=== PATIENT | female | born 1980 | race Caucasian/White ===

== ENCOUNTER 2016-11-21 23:37 | Emergency (ER) | payer OTHER ==
[~2016-11-21] VITALS: Ht 152.4 cm; Wt 66.2 kg
[~2016-11-21 23:37] MED LIST: ANAPROX DS550 MG PO; ANUSOL-HC25 MG RC; BACTRIM DS 8001 TA1 PO; CATAFLAM50 MG PO; CIPRO250 MG PO; CIPROFLOXACIN500 MG PO; CLARITIN10 MG PO; COMBIVENT1 ARO IH; FLAGYL500 MG; FLEXERIL5 MG PO; IBU800 MG PO; LIDEX0.05% T; MACROBID100 M1 PO; MOTRIN800 MG PO; MULTI VITAMINS1 TAB PO; Miralax Powder255 GM PO; NKHM; PREDNICOT20 MG PO; PRENATAL1 TA3 PO; PRENATAL1 TA7 PO; PYRIDIUM100 MG PO; ROBITUSSIN AC 110 ML PO; SEPTRA DS 800 M1 TAB PO; TORADOL10 MG PO; ULTRAM50 MG PO; VIBRAMYCIN100 MG PO; VICODIN 5/500 505 MG PO; ZITHROMAX Z PA250 MG PO; ZOFRAN ODT4 MG SL
[2016-11-21 23:43] VITALS: BP 122/83
[2016-11-22] MEDS ORDERED: CLINDAMYCIN HC300 MG PO (00:11)
[2016-11-22] MEDS ORDERED: ULTRAM50 MG PO (00:11)
[2016-11-22] MEDS ORDERED: BACTRIM DS 8001 TA1 PO (00:11)
== END 2016-11-22 00:24 | disposition home or self-care (01) ==
LOC: ED 23:37
DX: S01.331A Puncture wound without foreign body of right ear, initial encounter (principal); H60.11 Cellulitis of right external ear; Z88.0 Allergy status to penicillin; Z88.1 Allergy status to other antibiotic agents; X58.XXXA Exposure to other specified factors, initial encounter; Y93.9 Activity, unspecified; Y92.9 Unspecified place or not applicable; Y99.9 Unspecified external cause status

== ENCOUNTER 2019-03-01 14:49 | Emergency (ER) | payer OTHER ==
[~2019-03-01] VITALS: Ht 152.4 cm; Wt 47.6 kg
[~2019-03-01 14:49] MED LIST changes: +CLINDAMYCIN HC300 MG PO
[2019-03-01 14:51] VITALS: BP 113/63
[2019-03-01 15:24] LABS: BASO # 0.1 10*3/uL (0.0-0.1); BASO % 0.4 % (0.0-1.0); EOS # 0.2 10*3/uL (0.0-0.4); EOS % 1.7 % (1.0-4.0); HEMATOCRIT 42.5 % (37.0-47.0); HEMOGLOBIN 14.2 g/dl (12.0-16.0); LYMPH # 1.1 10*3/uL (1.3-4.4); MEAN CORPUSCULAR HGB 30.4 pg (27.0-31.0); MEAN CORPUSCULAR HGB CONC 33.4 g/dl (33.0-37.0); MEAN PLATELET VOLUME 10.9 fl (9.6-12.3); MONO # 0.6 10*3/uL (0.1-1.0); MONO % 4.6 % (3.0-9.0); NEUT # 10.3 10*3/uL (2.3-7.9); NEUT % 83.9 % (47.0-73.0); PLATELET COUNT AUTOMATED 182 10*3/uL (130-400); RED BLOOD COUNT 4.67 10*6/uL (4.10-5.10); RED CELL DISTRI WIDTH 12.6 % (0-14.5); WHITE BLOOD COUNT 12.3 10*3/uL (4.8-10.8)
[2019-03-01 15:41] LABS: BILIRUBIN NEGATIVE (NEGATIVE); BLOOD TRACE-INTACT (NEGATIVE); CLARITY CLEAR (CLEAR); COLOR YELLOW (YELLOW); GLUCOSE NEGATIVE (NEGATIVE); KETONE NEGATIVE (NEGATIVE); LEUKO ESTERASE NEGATIVE (NEGATIVE); NITRITE NEGATIVE (NEGATIVE); PH 6.5 (5.0-9.0); SPECIFIC GRAVITY 1.015 (1.005-1.030); UROBILINOGEN 0.2 E.U./dl (0.2-1.0)
[2019-03-01 15:41] LABS: ALBUMIN 3.7 gm/dl (3.1-4.5); ALKALINE PHOSPHATASE 123 U/L (45-117); BUN 8 mg/dl (7-24); CHLORIDE 107 mmol/L (98-107); CREATININE 0.86 mg/dL (0.55-1.02); POTASSIUM 3.8 mmol/L (3.5-5.1); SGOT/AST 33 IU/L (3-35); SGPT/ALT 47 U/L (12-78); SODIUM 139 mmol/L (136-145); TOTAL PROTEIN 6.8 gm/dL (6.4-8.2)
[2019-03-01 16:07] LABS: BACTERIA 1+; RBC 21-30 rbc/hpf (0-2)
[2019-03-01] MEDS ORDERED: ZYRTEC10 MG PO (17:46)
[2019-03-01] MEDS ORDERED: ROBITUSSIN DM 105 ML PO (17:46)
[2019-03-01] MEDS ORDERED: PREDNISONE20 M1 PO (17:46)
== END 2019-03-01 17:51 | disposition home or self-care (01) ==
LOC: ED 14:49
PROVIDERS: Nurse Practitioner Family
DX: B34.9 Viral infection, unspecified (principal); Z88.1 Allergy status to other antibiotic agents; Z88.0 Allergy status to penicillin

== ENCOUNTER 2019-09-13 20:07 | Emergency (ER) | payer OTHER ==
[~2019-09-13] VITALS: Ht 152.4 cm; Wt 52.2 kg
[~2019-09-13 20:07] MED LIST changes: +PREDNISONE20 M1 PO; +ROBITUSSIN DM 105 ML PO; +ZYRTEC10 MG PO
[2019-09-13 20:09] VITALS: BP 99/57
[2019-09-13 20:28] LABS: BILIRUBIN NEGATIVE (NEGATIVE); BLOOD TRACE-INTACT (NEGATIVE); CLARITY CLEAR (CLEAR); COLOR YELLOW (YELLOW); GLUCOSE NEGATIVE (NEGATIVE); KETONE NEGATIVE (NEGATIVE); LEUKO ESTERASE NEGATIVE (NEGATIVE); NITRITE NEGATIVE (NEGATIVE); PH 6.5 (5.0-9.0); UROBILINOGEN 0.2 E.U./dl (0.2-1.0)
== END 2019-09-13 23:32 | disposition home or self-care (01) ==
LOC: ED 20:07
PROVIDERS: Nurse Practitioner Family
DX: R11.2 Nausea with vomiting, unspecified (principal); R10.9 Unspecified abdominal pain; R42 Dizziness and giddiness; Z32.01 Encounter for pregnancy test, result positive; K21.9 Gastro-esophageal reflux disease without esophagitis; G43.909 Migraine, unspecified, not intractable, without status migrainosus; G89.29 Other chronic pain; Z88.1 Allergy status to other antibiotic agents; Z91.041 Radiographic dye allergy status; Z79.899 Other long term (current) drug therapy; Z88.0 Allergy status to penicillin

== ENCOUNTER 2019-12-09 20:09 | Emergency (ER) | payer OTHER ==
[~2019-12-09] VITALS: Ht 152.4 cm; Wt 54.0 kg
[2019-12-09 21:21] LABS: BILIRUBIN NEGATIVE (NEGATIVE); BLOOD NEGATIVE (NEGATIVE); CLARITY SL CLOUDY (CLEAR); COLOR YELLOW (YELLOW); GLUCOSE NEGATIVE (NEGATIVE); KETONE NEGATIVE (NEGATIVE); LEUKO ESTERASE NEGATIVE (NEGATIVE); NITRITE NEGATIVE (NEGATIVE); UROBILINOGEN 0.2 E.U./dl (0.2-1.0)
[2019-12-09 21:22] LABS: BACTERIA 1+; EPITHELIAL CELLS TNTC; MUCOUS 2+
[2019-12-09] MEDS ORDERED: ROBITUSSIN DM 101 OZ PO (22:34)
== END 2019-12-09 23:39 | disposition home or self-care (01) ==
LOC: ED 20:09
PROVIDERS: Emergency Medicine
DX: O99.512 Diseases of the respiratory system complicating pregnancy, second trimester (principal); J06.9 Acute upper respiratory infection, unspecified; O99.352 Diseases of the nervous system complicating pregnancy, second trimester; G43.909 Migraine, unspecified, not intractable, without status migrainosus; O99.612 Diseases of the digestive system complicating pregnancy, second trimester; K21.9 Gastro-esophageal reflux disease without esophagitis; O99.332 Smoking (tobacco) complicating pregnancy, second trimester; G89.29 Other chronic pain; Z3A.20 20 weeks gestation of pregnancy; Z88.1 Allergy status to other antibiotic agents; Z91.041 Radiographic dye allergy status; Z88.0 Allergy status to penicillin; Z79.899 Other long term (current) drug therapy

== ENCOUNTER 2021-12-06 18:38 | Emergency (ER) | payer OTHER ==
[~2021-12-06] VITALS: Ht 152.4 cm; Wt 52.2 kg
[~2021-12-06 18:38] MED LIST changes: +ROBITUSSIN DM 101 OZ PO
[2021-12-06 18:46] VITALS: BP 131/92
[2021-12-06] MEDS ORDERED: NAPROXEN250 MG PO (20:33)
== END 2021-12-06 20:50 | disposition home or self-care (01) ==
LOC: ED 18:38
DX: S40.022A Contusion of left upper arm, initial encounter (principal); S80.12XA Contusion of left lower leg, initial encounter; S09.93XA Unspecified injury of face, initial encounter; G43.909 Migraine, unspecified, not intractable, without status migrainosus; K21.9 Gastro-esophageal reflux disease without esophagitis; Z88.1 Allergy status to other antibiotic agents; Z88.0 Allergy status to penicillin; Y08.89XA Assault by other specified means, initial encounter; Y93.89 Activity, other specified; Y92.89 Other specified places as the place of occurrence of the external cause; Y99.8 Other external cause status

== ENCOUNTER 2022-01-24 14:37 | Emergency (ER) | payer OTHER ==
[~2022-01-24] VITALS: Ht 152.4 cm; Wt 54.4 kg
[~2022-01-24 14:37] MED LIST changes: +NAPROXEN250 MG PO
[2022-01-24 15:03] VITALS: BP 117/65
== END 2022-01-24 16:18 | disposition home or self-care (01) ==
LOC: ED 14:37
DX: S66.912A Strain of unspecified muscle, fascia and tendon at wrist and hand level, left hand, initial encounter (principal); S16.1XXA Strain of muscle, fascia and tendon at neck level, initial encounter; Z88.0 Allergy status to penicillin; Z88.1 Allergy status to other antibiotic agents; X50.9XXA Other and unspecified overexertion or strenuous movements or postures, initial encounter; Y93.89 Activity, other specified; Y92.89 Other specified places as the place of occurrence of the external cause; Y99.8 Other external cause status

== ENCOUNTER 2022-06-02 18:54 | Emergency (ER) | payer OTHER ==
[~2022-06-02] VITALS: Ht 152.4 cm; Wt 54.4 kg
[2022-06-02 19:20] VITALS: BP 94/63
[2022-06-02 19:51] LABS: BILIRUBIN Negative (Negative); BLOOD 3+ (Negative); CLARITY Cloudy (Clear); COLOR Yellow (Yellow); GLUCOSE Negative (Negative); KETONE 1+ (Negative); LEUKO ESTERASE 3+ (Negative); NITRITE Positive (Negative); PH 5.5 (4.5-8.0); SPECIFIC GRAVITY 1.025 (1.001-1.030)
[2022-06-02 19:57] LABS: BACTERIA 4+
[2022-06-02 19:58] LABS: EPITHELIAL CELLS 0-2; RBC 21-30 rbc/hpf (0-2); WBC TNTC wbc/hpf (0-5)
[2022-06-02] MEDS ORDERED: MACROBID100 M1 PO (20:07)
== END 2022-06-02 20:10 | disposition home or self-care (01) ==
LOC: ED 18:54
PROVIDERS: Physician Assistant
DX: N39.0 Urinary tract infection, site not specified (principal); Z88.1 Allergy status to other antibiotic agents; Z88.0 Allergy status to penicillin

== ENCOUNTER 2022-11-09 12:27 | Emergency (ER) | payer OTHER ==
[~2022-11-09] VITALS: Ht 152.4 cm; Wt 54.4 kg
[2022-11-09 12:37] VITALS: BP 109/79
[2022-11-09 15:37] LABS: BILIRUBIN Negative (Negative); BLOOD Negative (Negative); CLARITY Clear (Clear); COLOR Yellow (Yellow); GLUCOSE Negative (Negative); KETONE Negative (Negative); LEUKO ESTERASE 2+ (Negative); NITRITE Negative (Negative); PH 6.5 (4.5-8.0)
[2022-11-09 15:45] LABS: BACTERIA 2+; WBC 16-20 wbc/hpf (0-5)
[2022-11-09 15:46] LABS: RBC 0-2 rbc/hpf (0-2)
[2022-11-09] MEDS ORDERED: CEPHALEXIN500 M1 PO (16:06)
== END 2022-11-09 17:18 | disposition home or self-care (01) ==
LOC: ED 12:27
PROVIDERS: Physician Assistant
DX: K08.89 Other specified disorders of teeth and supporting structures (principal); N39.0 Urinary tract infection, site not specified; Z88.1 Allergy status to other antibiotic agents; Z88.0 Allergy status to penicillin; Z91.040 Latex allergy status

== ENCOUNTER 2023-12-09 18:59 | Emergency (ER) | payer OTHER ==
[~2023-12-09] VITALS: Ht 152.4 cm; Wt 52.2 kg
[~2023-12-09 18:59] MED LIST changes: +CEPHALEXIN500 M1 PO
[2023-12-09 19:10] VITALS: BP 107/50
[2023-12-09] MEDS ORDERED: CYCLOBENZAPRINE10 MG PO (22:44)
== END 2023-12-09 23:12 | disposition home or self-care (01) ==
LOC: ED 18:59
DX: S16.1XXA Strain of muscle, fascia and tendon at neck level, initial encounter (principal); S29.019A Strain of muscle and tendon of unspecified wall of thorax, initial encounter; G43.909 Migraine, unspecified, not intractable, without status migrainosus; K21.9 Gastro-esophageal reflux disease without esophagitis; Z88.1 Allergy status to other antibiotic agents; Z88.0 Allergy status to penicillin; Z91.041 Radiographic dye allergy status; V89.2XXA Person injured in unspecified motor-vehicle accident, traffic, initial encounter; Y93.89 Activity, other specified; Y92.410 Unspecified street and highway as the place of occurrence of the external cause; Y99.8 Other external cause status

== ENCOUNTER 2023-12-30 11:15 | Emergency (ER) | payer OTHER ==
[~2023-12-30] VITALS: Ht 152.4 cm; Wt 52.2 kg
[~2023-12-30 11:15] MED LIST changes: +CYCLOBENZAPRINE10 MG PO
[2023-12-30 11:24] VITALS: BP 106/69
[2023-12-30 11:53] LABS: BASO % 0.4 % (0.0-1.0); EOS # 0.1 10*3/uL (0.0-0.4); EOS % 1.3 % (1.0-4.0); HEMATOCRIT 40.8 % (37.0-47.0); LYMPH # 1.5 10*3/uL (1.3-4.4); LYMPH % 20.7 % (27.0-41.0); MEAN CELL VOLUME 89.1 fl (81.0-99.0); MEAN CORPUSCULAR HGB 29.9 pg (27.0-31.0); MEAN CORPUSCULAR HGB CONC 33.6 g/dl (33.0-37.0); MEAN PLATELET VOLUME 10.5 fl (9.6-12.3); MONO # 0.3 10*3/uL (0.1-1.0); MONO % 4.6 % (3.0-9.0); NEUT # 5.3 10*3/uL (2.3-7.9); NEUT % 72.9 % (47.0-73.0); PLATELET COUNT AUTOMATED 188 10*3/uL (130-400); RED BLOOD COUNT 4.58 10*6/uL (4.10-5.10); RED CELL DISTRI WIDTH 11.8 % (0-14.5); WHITE BLOOD COUNT 7.2 10*3/uL (4.8-10.8)
[2023-12-30 12:11] LABS: ACT PARTIAL THROMBO TIME 27.9 SECONDS (20.0-32.1)
[2023-12-30 12:14] LABS: BUN 13 mg/dl (9-23); CHLORIDE 103 mmol/L (98-107); POTASSIUM 4.3 mmol/L (3.4-5.1)
[2023-12-30 13:59] LABS: BILIRUBIN Negative (Negative); BLOOD Negative (Negative); CLARITY Clear (Clear); COLOR Yellow (Yellow); GLUCOSE Negative (Negative); KETONE Trace (Negative); LEUKO ESTERASE Negative (Negative); NITRITE Negative (Negative); PH 5.5 (4.5-8.0)
[2023-12-30 14:08] LABS: RBC 0-2 rbc/hpf (0-2); WBC 0-2 wbc/hpf (0-5)
== END 2023-12-30 14:58 | disposition home or self-care (01) ==
LOC: ED 11:15
PROVIDERS: Nurse Practitioner
DX: R07.89 Other chest pain (principal); M79.602 Pain in left arm; G43.909 Migraine, unspecified, not intractable, without status migrainosus; K21.9 Gastro-esophageal reflux disease without esophagitis; Z88.1 Allergy status to other antibiotic agents; Z88.0 Allergy status to penicillin; Z91.041 Radiographic dye allergy status

== ENCOUNTER 2024-06-30 15:37 | Emergency (ER) | payer OTHER ==
[~2024-06-30] VITALS: Ht 152.4 cm; Wt 52.2 kg
[2024-06-30 15:43] VITALS: BP 94/60
[2024-06-30 16:56] LABS: BASO % 0.4 % (0.0-1.0); EOS # 0.1 10*3/uL (0.0-0.4); HEMATOCRIT 41.8 % (37.0-47.0); LYMPH # 2.1 10*3/uL (1.3-4.4); MEAN CELL VOLUME 87.8 fl (81.0-99.0); MEAN CORPUSCULAR HGB 29.8 pg (27.0-31.0); MEAN PLATELET VOLUME 10.8 fl (9.6-12.3); MONO # 0.5 10*3/uL (0.1-1.0); NEUT # 7.7 10*3/uL (2.3-7.9); NEUT % 73.5 % (47.0-73.0); PLATELET COUNT AUTOMATED 211 10*3/uL (130-400); RED BLOOD COUNT 4.76 10*6/uL (4.10-5.10); RED CELL DISTRI WIDTH 12.1 % (0-14.5); WHITE BLOOD COUNT 10.5 10*3/uL (4.8-10.8)
[2024-06-30 17:12] LABS: BUN 10 mg/dl (9-23); CHLORIDE 106 mmol/L (98-107); POTASSIUM 3.9 mmol/L (3.4-5.1)
[2024-06-30] MEDS ORDERED: PREDNISONE50 MG PO (17:19)
[2024-06-30] MEDS ORDERED: predniSONE 20 MG TAB PO ONE (17:20)
== END 2024-06-30 17:30 | disposition home or self-care (01) ==
LOC: ED 15:37
PROVIDERS: Nurse Practitioner Family
DX: S86.912A Strain of unspecified muscle(s) and tendon(s) at lower leg level, left leg, initial encounter (principal); M77.8 Other enthesopathies, not elsewhere classified; K21.9 Gastro-esophageal reflux disease without esophagitis; G43.909 Migraine, unspecified, not intractable, without status migrainosus; Z88.1 Allergy status to other antibiotic agents; Z88.0 Allergy status to penicillin; Z91.041 Radiographic dye allergy status; X50.1XXA Overexertion from prolonged static or awkward postures, initial encounter; Y93.89 Activity, other specified; Y92.89 Other specified places as the place of occurrence of the external cause; Y99.0 Civilian activity done for income or pay

== ENCOUNTER 2025-02-27 17:48 | Emergency (ER) | payer OTHER ==
[~2025-02-27] VITALS: Wt 54.4 kg
[~2025-02-27 17:48] MED LIST changes: +PREDNISONE50 MG PO
[2025-02-27 18:03] VITALS: BP 105/69
[2025-02-27 18:28] LABS: BILIRUBIN Negative (Negative); BLOOD Trace-Lysed (Negative); CLARITY Cloudy (Clear); COLOR Yellow (Yellow); GLUCOSE Negative (Negative); KETONE Negative (Negative); LEUKO ESTERASE 3+ (Negative); NITRITE Negative (Negative); PH 5.5 (4.5-8.0); SPECIFIC GRAVITY 1.015 (1.001-1.030)
[2025-02-27 18:37] LABS: BACTERIA 2+; WBC TNTC wbc/hpf (0-5)
[2025-02-27] MEDS ORDERED: CIPRO500 MG PO (18:45)
[2025-02-27] MEDS ORDERED: FLUONAZOLE150 M1 PO (18:45)
[2025-02-27] MEDS ORDERED: FLUCONAZOLE 150 MG TAB PO ONE (18:50)
[2025-02-27] MEDS ORDERED: cefTRIAXone Sodium 1 GM VIAL IM ONE (18:50)
[2025-02-27] MEDS ORDERED: Water, Sterile 10 ML VIAL ONE (19:10)
== END 2025-02-27 19:00 | disposition home or self-care (01) ==
LOC: ED 17:48
PROVIDERS: Nurse Practitioner Family
DX: S30.814A Abrasion of vagina and vulva, initial encounter (principal); N39.0 Urinary tract infection, site not specified; B37.31 Acute candidiasis of vulva and vagina; Z88.0 Allergy status to penicillin; Z88.1 Allergy status to other antibiotic agents; Z91.041 Radiographic dye allergy status; X58.XXXA Exposure to other specified factors, initial encounter; Y93.89 Activity, other specified; Y92.89 Other specified places as the place of occurrence of the external cause; Y99.8 Other external cause status

== ENCOUNTER 2025-05-02 21:54 | Emergency (ER) | payer OTHER ==
[~2025-05-02 21:54] MED LIST changes: +CIPRO500 MG PO; +FLUONAZOLE150 M1 PO
[2025-05-02 23:01] VITALS: BP 128/74
[2025-05-02 23:48] LABS: BILIRUBIN Negative (Negative); BLOOD 1+ (Negative); CLARITY Cloudy (Clear); COLOR Yellow (Yellow); GLUCOSE Negative (Negative); KETONE Negative (Negative); LEUKO ESTERASE 3+ (Negative); NITRITE Negative (Negative); SPECIFIC GRAVITY 1.015 (1.001-1.030); UROBILINOGEN 0.2 E.U./dl (0.0-1.0)
[2025-05-03 00:01] LABS: BACTERIA 2+; WBC TNTC wbc/hpf (0-5)
[2025-05-03] MEDS ORDERED: METRONIDAZOLE500 M1 PO (01:49)
[2025-05-03] MEDS ORDERED: CEFUROXIME AXE500 MG PO (01:49)
[2025-05-03] MEDS ORDERED: Cefuroxime Axetil 250 MG TAB PO ONE (01:55)
[2025-05-03] MEDS ORDERED: ACETAMINOPHEN 325 MG TAB PO ONE (01:55)
[2025-05-03] MEDS ORDERED: metroNIDAZOLE 500 MG TAB PO ONE (01:55)
== END 2025-05-03 01:50 | disposition home or self-care (01) ==
LOC: ED 21:54
PROVIDERS: Emergency Medicine
DX: K04.7 Periapical abscess without sinus (principal); N39.0 Urinary tract infection, site not specified; A59.9 Trichomoniasis, unspecified; Z88.1 Allergy status to other antibiotic agents; Z88.0 Allergy status to penicillin; Z91.041 Radiographic dye allergy status; Z79.899 Other long term (current) drug therapy

== ENCOUNTER 2025-06-18 17:21 | Emergency (ER) | payer OTHER ==
[~2025-06-18] VITALS: Ht 152.4 cm; Wt 54.4 kg
[~2025-06-18 17:21] MED LIST changes: +CEFUROXIME AXE500 MG PO; +METRONIDAZOLE500 M1 PO
[2025-06-18 17:33] VITALS: BP 106/64
[2025-06-18] MEDS ORDERED: Metoclopramide Hydrochloride 10 MG/2 ML VIAL IV ONE (18:15)
[2025-06-18] MEDS ORDERED: diphenhydrAMINE hydrochloride 50 MG/ML VIAL IV ONE (18:15)
[2025-06-18] MEDS ORDERED: SODIUM CHLORIDE 0.9% 1,000 ML IV ONE (18:15)
[2025-06-18] MEDS ORDERED: Ondansetron Hydrochloride 4 MG/2 ML VIAL IV ONE (18:20)
[2025-06-18 18:30] LABS: BASO # 0.0 10*3/uL (0.0-0.1); BASO % 0.2 % (0.0-1.0); EOS # 0.0 10*3/uL (0.0-0.4); EOS % 0.2 % (1.0-4.0); MEAN CELL VOLUME 89.3 fl (81.0-99.0); MEAN CORPUSCULAR HGB 29.6 pg (27.0-31.0); MEAN PLATELET VOLUME 9.8 fl (9.6-12.3); MONO # 0.5 10*3/uL (0.1-1.0); MONO % 4.3 % (3.0-9.0); NEUT # 10.7 10*3/uL (2.3-7.9); NEUT % 87.2 % (47.0-73.0); NUCLEATED RED BLOOD CELL 0.0 % (0.0-0.0); NUCLEATED RED BLOOD CELL 0.0 10*3/uL (0.0-0.0); PLATELET COUNT AUTOMATED 201 10*3/uL (130-400); RED CELL DISTRI WIDTH 11.9 % (0-14.5)
[2025-06-18 18:57] LABS: BILIRUBIN Negative (Negative); BLOOD Trace-Lysed (Negative); CLARITY Clear (Clear); COLOR Yellow (Yellow); KETONE 1+ (Negative); LEUKO ESTERASE 1+ (Negative); NITRITE Negative (Negative); PH 7.5 (4.5-8.0); SPECIFIC GRAVITY 1.010 (1.001-1.030); UROBILINOGEN 1.0 E.U./dl (0.0-1.0)
[2025-06-18 19:02] LABS: BUN 8 mg/dl (9-23); SGPT/ALT 20 U/L (5-49)
[2025-06-18 19:16] LABS: BACTERIA 1+; EPITHELIAL CELLS 16-20; MUCOUS TRACE
[2025-06-18] MEDS ORDERED: CEFADROXIL500 M1 PO (22:47)
[2025-06-18] MEDS ORDERED: CORTISPORIN SUS10 ML OT (22:47)
== END 2025-06-18 23:18 | disposition home or self-care (01) ==
LOC: ED 17:21
PROVIDERS: Emergency Medicine
DX: B34.9 Viral infection, unspecified (principal); H60.331 Swimmer's ear, right ear; G43.909 Migraine, unspecified, not intractable, without status migrainosus; K21.9 Gastro-esophageal reflux disease without esophagitis; Z20.822 Contact with and (suspected) exposure to COVID-19; Z79.899 Other long term (current) drug therapy; Z88.0 Allergy status to penicillin; Z88.1 Allergy status to other antibiotic agents; Z88.8 Allergy status to other drugs, medicaments and biological substances

== ENCOUNTER 2025-09-24 18:31 | Emergency (ER) | payer OTHER ==
[~2025-09-24] VITALS: Ht 152.4 cm; Wt 56.7 kg
[~2025-09-24 18:31] MED LIST changes: +CEFADROXIL500 M1 PO; +CORTISPORIN SUS10 ML OT
[2025-09-24 18:47] VITALS: BP 102/66
[2025-09-24 18:58] LABS: BILIRUBIN Negative (Negative); BLOOD 3+ (Negative); CLARITY Cloudy (Clear); COLOR Yellow (Yellow); KETONE Negative (Negative); LEUKO ESTERASE 3+ (Negative); NITRITE Negative (Negative); PH 5.5 (4.5-8.0); SPECIFIC GRAVITY 1.020 (1.001-1.030); UROBILINOGEN 0.2 E.U./dl (0.0-1.0)
[2025-09-24 19:07] LABS: BACTERIA 4+; RBC 31-40 rbc/hpf (0-2); WBC 51-100 wbc/hpf (0-5)
[2025-09-24] MEDS ORDERED: Phenazopyridine Hydrochlorid2 100 MG TAB PO ONE (19:30)
[2025-09-24] MEDS ORDERED: CIPRO500 MG PO (19:30)
[2025-09-24] MEDS ORDERED: metroNIDAZOLE 500 MG TAB PO ONE (19:30)
[2025-09-24] MEDS ORDERED: METRONIDAZOLE500 M1 PO (19:30)
[2025-09-24] MEDS ORDERED: PYRIDIUM200 M1 PO (19:30)
[2025-09-24] MEDS ORDERED: Ciprofloxacin Hydrochloride 500 MG TAB PO ONE (19:30)
== END 2025-09-24 19:39 | disposition home or self-care (01) ==
LOC: ED 18:31
PROVIDERS: Nurse Practitioner Family
DX: N39.0 Urinary tract infection, site not specified (principal); N89.8 Other specified noninflammatory disorders of vagina; K21.9 Gastro-esophageal reflux disease without esophagitis; Z88.0 Allergy status to penicillin; Z88.1 Allergy status to other antibiotic agents; Z88.8 Allergy status to other drugs, medicaments and biological substances